=== PATIENT | female | born 1945 | race African-American/Black ===

== ENCOUNTER 2017-12-31 07:13 | Emergency (ER) | payer OTHER ==
[~2017-12-31] VITALS: Ht 154.9 cm; Wt 107.5 kg
[~2017-12-31 07:13] MED LIST: AVAPRO300 MG PO; CYCLOBENZAPRINE10 MG PO; METFORMIN 500500 MG PO; NORVASC 5 MG TAB5 MG PO; PROTONIX40 MG PO; TOPROL XL50 MG PO
[2017-12-31] MEDS ORDERED: HYDROCODONE-AP1 EAC6 PO (07:56)
[2017-12-31] MEDS ORDERED: FLONASE 0.05%50 MCG NASAL (07:57)
[2017-12-31] MEDS ORDERED: HYDROCHLOROTH12.5 M1 PO (07:58)
[2017-12-31] MEDS ORDERED: PAXIL10 MG PO (07:58)
[2017-12-31] MEDS ORDERED: SENNA8.6 MG PO (07:58)
[2017-12-31] MEDS ORDERED: MOBIC15 MG PO (07:59)
[2017-12-31] MEDS ORDERED: SINGULAIR 10 MG10 M1 PO (08:00)
[2017-12-31] MEDS ORDERED: COZAAR100 MG PO (08:00)
[2017-12-31] MEDS ORDERED: COREG6.25 MG PO (08:01)
[2017-12-31] MEDS ORDERED: BAYER ASPIRIN1 EACH PO (08:05)
[2017-12-31] MEDS ORDERED: ADVAIR HFA 230M12 GM INH (08:05)
[2017-12-31 10:04] LABS: ABSOLUTE NEUTROPHILS 3.1 thou/uL (1.6-8.1); HEMOGLOBIN 11.4 gm/dL (12.0-15.0)
[2017-12-31 10:09] LABS: ABSOLUTE BASOPHILS 0.1 thou/uL (0.0-0.2); ABSOLUTE EOSINOPHILS 0.1 thou/uL (0.0-0.7); ABSOLUTE LYMPHOCYTES 1.5 thou/uL (0.8-5.3); ABSOLUTE MONOCYTES 0.4 thou/uL (0.0-1.2); HEMATOCRIT 34.5 % (37.0-47.0); LYMPHOCYTES 28.7 %; MCH 29.7 pg (26.0-34.0); MCV 89.8 fL (80.0-100.0); MONOCYTES 7.8 %; MPV 8.2 fl. (7.2-11.1); NUCLEATED RBCS 0 /100WBC; PLATELET COUNT* 289 thou/uL (150-400); POLYS 61.5 %; RBC 3.84 mil/uL (4.20-5.00); RDW-CV 14.9 % (10.5-14.5); WBC 5.1 thou/uL (4.0-11.0)
[2017-12-31 10:11] LABS: ANION GAP 7 mmol/L (7-16); BUN 23 mg/dL (7-18); CALCIUM 9.6 mg/dL (8.5-10.1); CHLORIDE 99 mmol/L (98-107); CO2 30 mmol/L (21-32); GLUCOSE 111 mg/dL (70-99); SODIUM 136 mmol/L (136-145)
[2017-12-31 10:22] LABS: ALBUMIN 3.6 g/dL (3.4-5.0); ALKALINE PHOSPHATASE 82 U/L (46-116); NT-PRO BRAIN NAT PEPTIDE 18 pg/mL (<300); SGOT 19 U/L (15-37); SGPT 23 U/L (30-65); TOTAL BILIRUBIN 0.3 mg/dL (<0.1-1.0); TOTAL PROTEIN 7.7 g/dL (6.4-8.2); TROPONIN-I LEVEL <0.06 ng/mL (<0.06)
[2017-12-31 12:43] VITALS: BP 151/67
--- NOTE | 2017-12-31 16:06 | EKG ---
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
== END 2017-12-31 12:44 | disposition home or self-care (01) ==
LOC: M.ERS 07:13
PROVIDERS: Personal Emergency Response Attendant
DX: R51 Headache (principal); I16.0 Hypertensive urgency; J45.909 Unspecified asthma, uncomplicated; E11.9 Type 2 diabetes mellitus without complications; K64.9 Unspecified hemorrhoids; Z98.890 Other specified postprocedural states; Z90.710 Acquired absence of both cervix and uterus; Z88.5 Allergy status to narcotic agent; Z88.6 Allergy status to analgesic agent; Z88.0 Allergy status to penicillin; Z88.8 Allergy status to other drugs, medicaments and biological substances

== ENCOUNTER 2018-04-09 12:33 | Emergency (ER) | payer OTHER ==
[~2018-04-09] VITALS: Ht 154.9 cm; Wt 102.1 kg
[~2018-04-09 12:33] MED LIST changes: +ADVAIR HFA 230M12 GM INH; +BAYER ASPIRIN1 EACH PO; +COREG6.25 MG PO; +COZAAR100 MG PO; +FLONASE 0.05%50 MCG NASAL; +HYDROCHLOROTH12.5 M1 PO; +HYDROCODONE-AP1 EAC6 PO; +MOBIC15 MG PO; +PAXIL10 MG PO; +SENNA8.6 MG PO; +SINGULAIR 10 MG10 M1 PO
[2018-04-09] MEDS ORDERED: APAP650 PO (12:51)
[2018-04-09 15:49] LABS: ABSOLUTE BASOPHILS 0.1 thou/uL (0.0-0.2); ABSOLUTE EOSINOPHILS 0.1 thou/uL (0.0-0.7); ABSOLUTE LYMPHOCYTES 1.8 thou/uL (0.8-5.3); ABSOLUTE MONOCYTES 0.4 thou/uL (0.0-1.2); ABSOLUTE NEUTROPHILS 2.8 thou/uL (1.6-8.1); EOSINOPHILS 1.5 %; HEMATOCRIT 36.6 % (37.0-47.0); LYMPHOCYTES 34.9 %; MCH 29.4 pg (26.0-34.0); MCHC 32.9 g/dL (28.0-37.0); MCV 89.2 fL (80.0-100.0); MONOCYTES 8.4 %; MPV 8.2 fl. (7.2-11.1); NUCLEATED RBCS 0 /100WBC; PLATELET COUNT* 298 thou/uL (150-400); POLYS 54.2 %; RDW-CV 15.5 % (10.5-14.5); WBC 5.2 thou/uL (4.0-11.0)
[2018-04-09 15:54] LABS: CALCIUM 9.4 mg/dL (8.5-10.1); CREATININE 0.9 mg/dL (0.6-1.3); POTASSIUM 4.7 mmol/L (3.5-5.1)
[2018-04-09 15:59] LABS: ALBUMIN 3.8 g/dL (3.4-5.0); TOTAL BILIRUBIN 0.3 mg/dL (<0.1-1.0); TOTAL PROTEIN 7.9 g/dL (6.4-8.2)
[2018-04-09] MEDS ORDERED: PERCOCET PO (16:58)
[2018-04-09] MEDS ORDERED: ULTRA-LIGHT RO1 EACH (16:58)
[2018-04-09 17:00] LABS: URINE BILIRUBIN NEGATIVE (Negative); URINE BLOOD TRACE (Negative); URINE CLARITY CLEAR; URINE COLOR YELLOW; URINE GLUCOSE-RANDOM NEGATIVE (Negative); URINE KETONES NEGATIVE (Negative); URINE LEUKOCYTES NEGATIVE (Negative); URINE NITRITE NEGATIVE (Negative); URINE PROTEIN NEGATIVE (Negative); URINE SPECIFIC GRAVITY <= 1.005 (1.005-1.030); URINE UROBILINOGEN 0.2 E.U./dl (0.2-1.0)
[2018-04-09 17:40] VITALS: BP 147/77
--- NOTE | 2018-04-10 12:56 | EKG ---
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
== END 2018-04-09 17:41 | disposition still patient (30) ==
LOC: M.ERS 12:33
PROVIDERS: Physician Assistant Surgical
DX: S82.091A Other fracture of right patella, initial encounter for closed fracture (principal); S72.102A Unspecified trochanteric fracture of left femur, initial encounter for closed fracture; S00.83XA Contusion of other part of head, initial encounter; J45.909 Unspecified asthma, uncomplicated; E11.9 Type 2 diabetes mellitus without complications; Z90.710 Acquired absence of both cervix and uterus; Z88.5 Allergy status to narcotic agent; Z88.0 Allergy status to penicillin; Z88.8 Allergy status to other drugs, medicaments and biological substances; W01.0XXA Fall on same level from slipping, tripping and stumbling without subsequent striking against object, initial encounter; Y93.89 Activity, other specified; Y92.89 Other specified places as the place of occurrence of the external cause; Y99.8 Other external cause status

== ENCOUNTER 2019-05-06 03:59 | Emergency (ER) | payer OTHER ==
[~2019-05-06] VITALS: Ht 154.9 cm; Wt 99.8 kg
[~2019-05-06 03:59] MED LIST changes: +APAP650 PO; +PERCOCET PO; +ULTRA-LIGHT RO1 EACH
[2019-05-06 04:24] LABS: ABSOLUTE BASOPHILS 0.1 thou/uL (0.0-0.2); ABSOLUTE EOSINOPHILS 0.1 thou/uL (0.0-0.7); ABSOLUTE LYMPHOCYTES 2.3 thou/uL (0.8-5.3); ABSOLUTE MONOCYTES 0.7 thou/uL (0.0-1.2); ABSOLUTE NEUTROPHILS 4.3 thou/uL (1.6-8.1); BASOPHILS 0.8 %; EOSINOPHILS 1.2 %; HEMATOCRIT 34.8 % (37.0-47.0); HEMOGLOBIN 11.5 gm/dL (12.0-15.0); LYMPHOCYTES 30.6 %; MCH 29.1 pg (26.0-34.0); MCHC 33.1 g/dL (28.0-37.0); MCV 87.9 fL (80.0-100.0); MONOCYTES 9.9 %; MPV 7.6 fl. (7.2-11.1); NUCLEATED RBCS 0 /100WBC; PLATELET COUNT* 344 thou/uL (150-400); POLYS 57.5 %; RBC 3.96 mil/uL (4.20-5.00); WBC 7.4 thou/uL (4.0-11.0)
[2019-05-06 04:34] LABS: CREATININE 0.9 mg/dL (0.6-1.3); POTASSIUM 4.5 mmol/L (3.5-5.1)
[2019-05-06 04:39] LABS: ALBUMIN 3.7 g/dL (3.4-5.0); TOTAL BILIRUBIN 0.2 mg/dL (<0.1-1.0); TOTAL PROTEIN 7.7 g/dL (6.4-8.2)
[2019-05-06] MEDS ORDERED: LINZESS145 MCG PO ×2 (06:39→06:40)
[2019-05-06 06:55] VITALS: BP 147/85
== END 2019-05-06 06:56 | disposition home or self-care (01) ==
LOC: M.ERS 03:59
PROVIDERS: Emergency Medicine
DX: K56.41 Fecal impaction (principal); E11.9 Type 2 diabetes mellitus without complications; J45.909 Unspecified asthma, uncomplicated; Z88.5 Allergy status to narcotic agent; Z88.0 Allergy status to penicillin; Z88.8 Allergy status to other drugs, medicaments and biological substances; Z90.710 Acquired absence of both cervix and uterus; Z98.890 Other specified postprocedural states